=== PATIENT | female | born 1940 | race Caucasian/White ===

== ENCOUNTER 2019-01-04 18:07 | Inpatient (IN) ==
[2019-01-04] MEDS ORDERED: Naloxone 0.4 MG/ML INJ IVP PRN (23:24)
[2019-01-04] MEDS ORDERED: *HR* Metoprolol 5 MG/5 ML VIAL IVP ONE (23:53)
[2019-01-05] MEDS ORDERED: Albumin 25% 25gram/100mL 25 GM/100 ML IV.SOLN IVPB ONE (00:59)
[2019-01-05 01:56] LABS: Basophils % 0.3 %; Eosinophils # 0.1 K/mcL (0.0-0.6); Eosinophils % 2.1 %; Hematocrit 23.6 % (35.3-44.9); Hemoglobin 7.7 g/dL (11.5-15.4); Immature Granulocytes % 0.3 % (0-4); Lymphocytes # 0.5 K/mcL (0.6-4.6); Lymphocytes % 11.9 %; Mean Corpuscular HGB Conc 32.6 g/dL (31.6-35.5); Mean Corpuscular Hemoglobin 29.8 pg (28.0-33.3); Mean Corpuscular Volume 91.5 fL (83.0-100.0); Mean Platelet Volume 9.9 fL (9.4-12.4); Monocytes # 0.3 K/mcL (0.0-1.3); Monocytes % 7.7 %; Neutrophils # 2.9 K/mcL (1.6-8.9); Platelet Count 191 K/mcL (140-400); Red Blood Count 2.58 M/mcL (3.82-4.97); Red Cell Distribution Width 15.3 % (11.5-14.5); Segmented Neutrophils % 77.7 %; White Blood Count 3.8 K/mcL (4.3-11.1)
[2019-01-05 02:09] LABS: % Iron Saturation 10 % (15-50); Iron 28 mcg/dL (50-170); Transferrin 195 mg/dL (203-362)
[2019-01-05 02:25] LABS: Ferritin 114 ng/mL (10-120)
[2019-01-05 02:34] LABS: Blood Urea Nitrogen > 130 mg/dL (8-23); Calcium 8.3 mg/dL (8.6-10.3); Carbon Dioxide 13 mEq/L (23-29); Chloride 110 mEq/L (98-107); Glucose 95 mg/dL (70-105); Magnesium 1.8 mg/dL (1.6-2.6); Phosphorous 5.8 mg/dL (2.7-4.5); Potassium 5.1 mEq/L (3.5-5.1); Sodium 137 mEq/L (136-145); eGFR For African Americans 10 (> 60); eGFR For Non-African Americans 8 (> 60)
[2019-01-05 16:31] LABS: Complement C3 101 mg/dL (87-200)
[2019-01-05] MEDS: Sodium Bicarbonate 75 MEQ in 0.45 % Sodium Chloride 1,000 ML IVC SCH (16:51)
[2019-01-06 01:24] LABS: Potassium,Urine 38.2 mEq/L; Sodium, Urine 28.9 mEq/L
[2019-01-06] MEDS: Sodium Bicarbonate 75 MEQ in 0.45 % Sodium Chloride 1,000 ML IVC SCH ×2 (04:49→14:31)
[2019-01-06 05:24] LABS: Eosinophils # 0.1 K/mcL (0.0-0.6); Eosinophils % 1.3 %; Hemoglobin 7.4 g/dL (11.5-15.4); Immature Granulocytes % 0.5 % (0-4); Lymphocytes # 0.5 K/mcL (0.6-4.6); Lymphocytes % 12.6 %; Mean Corpuscular HGB Conc 32.2 g/dL (31.6-35.5); Mean Corpuscular Hemoglobin 29.5 pg (28.0-33.3); Mean Corpuscular Volume 91.6 fL (83.0-100.0); Mean Platelet Volume 10.1 fL (9.4-12.4); Monocytes # 0.3 K/mcL (0.0-1.3); Monocytes % 7.8 %; Neutrophils # 2.9 K/mcL (1.6-8.9); Platelet Count 195 K/mcL (140-400); Red Blood Count 2.51 M/mcL (3.82-4.97); Red Cell Distribution Width 15.5 % (11.5-14.5); Segmented Neutrophils % 77.8 %; White Blood Count 3.7 K/mcL (4.3-11.1)
[2019-01-06 05:49] LABS: Blood Urea Nitrogen > 130 mg/dL (8-23); Calcium 8.4 mg/dL (8.6-10.3); Carbon Dioxide 17 mEq/L (23-29); Chloride 108 mEq/L (98-107); Glucose 116 mg/dL (70-105); Potassium 4.8 mEq/L (3.5-5.1); Sodium 141 mEq/L (136-145); eGFR For African Americans 10 (> 60); eGFR For Non-African Americans 8 (> 60)
[2019-01-06] MEDS ORDERED: *HR* Metoprolol 5 MG/5 ML VIAL IVP ONE ×2 (11:25→13:49)
[2019-01-06] MEDS: Iron Sucrose Complex 200 MG in 0.9 % Sodium Chloride 100 ML IVPB SCH (18:45)
[2019-01-06 22:42] LABS: Basophils % 0.2 %; Hematocrit 24.1 % (35.3-44.9); Hemoglobin 8.4 g/dL (11.5-15.4); Immature Granulocytes % 0.2 % (0-4); Lymphocytes # 0.5 K/mcL (0.6-4.6); Lymphocytes % 12.2 %; Mean Corpuscular HGB Conc 34.9 g/dL (31.6-35.5); Mean Corpuscular Hemoglobin 30.5 pg (28.0-33.3); Mean Corpuscular Volume 87.6 fL (83.0-100.0); Mean Platelet Volume 9.9 fL (9.4-12.4); Monocytes # 0.3 K/mcL (0.0-1.3); Monocytes % 8.1 %; Neutrophils # 3.2 K/mcL (1.6-8.9); Platelet Count 206 K/mcL (140-400); Red Blood Count 2.75 M/mcL (3.82-4.97); Red Cell Distribution Width 15.4 % (11.5-14.5); Segmented Neutrophils % 78.3 %; White Blood Count 4.1 K/mcL (4.3-11.1)
[2019-01-06] MEDS ORDERED: Melatonin 3 MG TABLET PO ONE (23:29)
[2019-01-07] MEDS: Sodium Bicarbonate 75 MEQ in 0.45 % Sodium Chloride 1,000 ML IVC SCH (02:30)
[2019-01-07 04:18] LABS: Basophils % 0.2 %; Eosinophils # 0.1 K/mcL (0.0-0.6); Eosinophils % 1.1 %; Hematocrit 23.4 % (35.3-44.9); Hemoglobin 7.6 g/dL (11.5-15.4); Immature Granulocytes % 0.4 % (0-4); Lymphocytes # 0.6 K/mcL (0.6-4.6); Lymphocytes % 11.7 %; Mean Corpuscular HGB Conc 32.5 g/dL (31.6-35.5); Mean Corpuscular Hemoglobin 29.5 pg (28.0-33.3); Mean Corpuscular Volume 90.7 fL (83.0-100.0); Mean Platelet Volume 10.1 fL (9.4-12.4); Monocytes # 0.3 K/mcL (0.0-1.3); Monocytes % 6.8 %; Neutrophils # 3.7 K/mcL (1.6-8.9); Platelet Count 202 K/mcL (140-400); Red Blood Count 2.58 M/mcL (3.82-4.97); Red Cell Distribution Width 15.4 % (11.5-14.5); Segmented Neutrophils % 79.8 %; White Blood Count 4.7 K/mcL (4.3-11.1)
[2019-01-07 04:40] LABS: Blood Urea Nitrogen > 130 mg/dL (8-23)
[2019-01-07 04:41] LABS: Calcium 8.1 mg/dL (8.6-10.3); Carbon Dioxide 19 mEq/L (23-29); Chloride 107 mEq/L (98-107); Glucose 118 mg/dL (70-105); Potassium 4.5 mEq/L (3.5-5.1); Sodium 138 mEq/L (136-145); eGFR For African Americans 11 (> 60); eGFR For Non-African Americans 9 (> 60)
[2019-01-07] MEDS: *HR* Metoprolol 5 MG/5 ML VIAL IVP PRN ×2 (09:25→15:28)
[2019-01-07] MEDS: Iron Sucrose Complex 200 MG in 0.9 % Sodium Chloride 100 ML IVPB SCH (09:53)
[2019-01-07] MEDS ORDERED: Acetaminophen 325 MG TABLET PO PRN (10:25)
[2019-01-07 11:38] LABS: Uric Acid 8.3 mg/dL (2.3-7.6)
[2019-01-07] MEDS ORDERED: 0.9 % Sodium Chloride 250 ML ONE (12:56)
[2019-01-07] MEDS: *HR* Metoprolol 5 MG/5 ML VIAL IVP SCH ×2 (15:51→16:19)
[2019-01-07 16:31] LABS: Protein/Creatinine Ratio,Urine 1.33 mg/mg (0.00-0.20)
[2019-01-08 02:16] LABS: Basophils % 0.2 %; Eosinophils # 0.1 K/mcL (0.0-0.6); Eosinophils % 1.3 %; Hematocrit 27.5 % (35.3-44.9); Immature Granulocytes % 0.4 % (0-4); Lymphocytes # 0.5 K/mcL (0.6-4.6); Lymphocytes % 8.8 %; Mean Corpuscular HGB Conc 34.5 g/dL (31.6-35.5); Mean Corpuscular Hemoglobin 30.1 pg (28.0-33.3); Mean Platelet Volume 10.1 fL (9.4-12.4); Monocytes # 0.5 K/mcL (0.0-1.3); Monocytes % 9.1 %; Neutrophils # 4.4 K/mcL (1.6-8.9); Platelet Count 196 K/mcL (140-400); Red Blood Count 3.16 M/mcL (3.82-4.97); Red Cell Distribution Width 16.3 % (11.5-14.5); Segmented Neutrophils % 80.2 %; White Blood Count 5.5 K/mcL (4.3-11.1)
[2019-01-08 02:17] LABS: Hemoglobin 9.5 g/dL (11.5-15.4)
[2019-01-08 02:40] LABS: Blood Urea Nitrogen > 130 mg/dL (8-23); Calcium 8.5 mg/dL (8.6-10.3); Carbon Dioxide 19 mEq/L (23-29); Chloride 105 mEq/L (98-107); Glucose 113 mg/dL (70-105); Potassium 4.8 mEq/L (3.5-5.1); Sodium 138 mEq/L (136-145); eGFR For African Americans 11 (> 60); eGFR For Non-African Americans 9 (> 60)
[2019-01-08] MEDS: Diltiazem CD (24hr) 120 MG CAPSULE PO SCH (08:21)
[2019-01-08] MEDS: Iron Sucrose Complex 200 MG in 0.9 % Sodium Chloride 100 ML IVPB SCH (08:52)
[2019-01-08 09:05] LABS: ANA IgG by ELISA NONE DETECTED (None Detected)
[2019-01-08] MEDS ORDERED: Ergocalciferol (VIT D2) 50,000 UNIT (1.25MG) CAP PO SCH (15:00)
[2019-01-08] MEDS: *HR* Metoprolol 5 MG/5 ML VIAL IVP SCH (16:14)
[2019-01-09] MEDS: Sodium Bicarbonate 75 MEQ in 0.45 % Sodium Chloride 1,000 ML IVC SCH (07:43)
[2019-01-09 08:39] LABS: Serine Protease-3 Antibody 0 AU/mL (0-19)
[2019-01-09] MEDS: Iron Sucrose Complex 200 MG in 0.9 % Sodium Chloride 100 ML IVPB SCH (09:23)
[2019-01-09] MEDS: Diltiazem CD (24hr) 120 MG CAPSULE PO SCH (09:24)
[2019-01-09] MEDS ORDERED: *HR* Metoprolol 5 MG/5 ML VIAL IVP ONE (09:27)
[2019-01-10 05:43] LABS: Alpha 2 Globulin (PEP) 0.82 g/dL (0.48-1.05); Beta Globulin (PEP) 0.57 g/dL (0.48-1.10)
[2019-01-10] MEDS: Diltiazem CD (24hr) 120 MG CAPSULE PO SCH (09:48)
[2019-01-10 13:04] LABS: IFE Reflexed IFE Done; Immunoglobulin A 106 mg/dL (68-408); Immunoglobulin G 464 mg/dL (768-1632); Immunoglobulin M 62 mg/dL (35-263)
[2019-01-11] MEDS: Diltiazem CD (24hr) 120 MG CAPSULE PO SCH (08:56)
[2019-01-12] MEDS: Diltiazem CD (24hr) 120 MG CAPSULE PO SCH (07:52)
[2019-01-12 11:06] VITALS: BP 103/54
== END 2019-01-12 14:50 | DRG 683 ==
LOC: 2ANU → SUATTDRO 21:03
PROVIDERS: ADMIT Internal Medicine; ATTEND Pharmacist